=== PATIENT | female | born 1985 | race Two or more races ===

== ENCOUNTER 2018-12-17 17:36 | Emergency (ER) | payer SELFPAY ==
[~2018-12-17] VITALS: Ht 165.1 cm; Wt 78.5 kg
[2018-12-17 18:52] LABS: BILIRUBIN,URINE NEGATIVE (NEG); CLARITY,URINE CLEAR; COLOR,URINE YELLOW; NITRITE,URINE NEGATIVE (NEG); PROTEIN,URINE NEGATIVE (NEG-TRACE); UROBILINOGEN,URINE 0.2 mg/dL (0.2 mg/dL)
[2018-12-17] MEDS ORDERED: ACETAMINOPHEN 325 MG TABLET. PO ONE (19:00)
[2018-12-17 19:01] LABS: BACTERIA,URINE 0 /HPF (0-FEW); SQUAMOUS EPITHELIAL CELL,UR FEW /LPF
[2018-12-17 19:48] LABS: BASO # 0.1 x10^3/uL (0.0-0.2); BASO % 1 % (0-3); EOS # 0.1 x10^3/uL (0.0-0.7); EOS % 1 % (0-3); HEMATOCRIT 41.3 % (36.0-47.0); HEMOGLOBIN 13.9 g/dL (12.0-15.5); LYMPH # 2.9 x10^3/uL (1.0-4.8); LYMPH % 28 % (24-48); MEAN CORPUSCULAR HEMOGLOBIN 29 pg (25-35); MEAN CORPUSCULAR HGB CONC 34 g/dL (31-37); MEAN CORPUSCULAR VOLUME 87 fL (79-100); MONO # 0.7 x10^3/uL (0.0-1.1); MONO % 7 % (0-9); NEUT # 6.9 x10^3uL (1.8-7.7); NEUT % 65 % (31-73); PLATELET COUNT 283 x10^3/uL (140-400); RED BLOOD COUNT 4.76 x10^6/uL (3.50-5.40); RED CELL DISTRIBUTION WIDTH 14.1 % (11.5-14.5); WHITE BLOOD COUNT 10.6 x10^3/uL (4.0-11.0)
[2018-12-17 19:55] LABS: CALCIUM 9.3 mg/dL (8.5-10.1); CREATININE 0.5 mg/dL (0.6-1.0); GFR 141.2; POTASSIUM 3.6 mmol/L (3.5-5.1)
[2018-12-17 20:03] LABS: MAGNESIUM 2.1 mg/dL (1.8-2.4); TOTAL BILIRUBIN 0.3 mg/dL (0.2-1.0)
[2018-12-17 20:07] LABS: PROTHROMBIN TIME PATIENT 13.5 SEC (11.7-14.0)
--- NOTE | 2018-12-17 20:50 | RAD ---
CT chest without contrast, CT abdomen pelvis without contrast. HISTORY: Fall, left flank pain, hematuria, left chest pain CT CHEST: CT scan the chest was done without contrast. Thyroid is homogeneous. There is no mediastinal adenopathy. There is no pneumothorax or pleural effusion. Lungs are clear. A rib fracture is not identified. IMPRESSION: 1. Negative CT of the chest. End impression CT abdomen and pelvis CT scan the abdomen pelvis was done without contrast. Liver is intact without abnormality or lesion. There is no calcified gallstone. Spleen and adrenal glands are normal. Pancreas is unremarkable. There is no mass or hydronephrosis or calculus in the kidneys. There is no abnormal perinephric collection. There are phleboliths in the pelvis. A ureteral calculus is not definitely identified. There is no bowel obstruction or ascites. There is no free air. Appendix is normal. Uterus and ovaries are unremarkable. A pelvic fracture is not identified. IMPRESSION: 1. No abdominal or pelvic mass or free fluid noted. 2. No renal or ureteral calculus noted Electronically signed by: Estuardo Alvarez MD (12/17/2018 8:46 PM) [facility]
--- NOTE | 2018-12-17 21:04 | PHYS DOC ---
Past Medical History Past Medical History: No Pertinent History Past Surgical History: No Surgical History Additional Information: Nonsmoker Alcohol Use: None Drug Use: None Adult General Chief Complaint Chief Complaint: FLANK PAIN HPI HPI 33 y/o female presents with report of left flank pain with associated hematuria which started this evening. Reports some left lateral chest wall pain. Reports history of mechanical trip and fall today down 3 steps while at [employer] today at 1115am. Denies head trauma or neck pain. Denies laceration. Denies . Review of Systems Review of Systems Constitutional: Denies fever or chills [] Eyes: Denies change in visual acuity, redness, or eye pain [] HENT: Denies nasal congestion or sore throat [] Respiratory: Denies cough or shortness of breath [] Cardiovascular: Reports left low chest wall pain; denies palpitations GI: Denies abdominal pain, nausea, vomiting, or diarrhea [] : Denies dysuria; reports hematuria [] Musculoskeletal: Reports left flank pain Integument: Denies rash or skin lesions [] Neurologic: Denies headache, focal weakness or sensory changes [] Complete systems were reviewed and found to be within normal limits, except as documented in this note. Current Medications Current Medications Current Medications Medications (Trade) Dose Ordered Sig/Dionna Start Time Stop Time Status Last Admin Dose Admin Acetaminophen (Tylenol) 650 mg 1X ONCE 12/17/18 19:00 12/17/18 19:06 DC 12/17/18 19:35 650 MG Allergies Allergies Allergies Coded Allergies Type Severity Reaction Last Updated Verified No Known Drug Allergies 12/17/18 No Physical Exam Physical Exam Constitutional: Well developed, well nourished, no acute distress, non-toxic appearance. [] HENT: Normocephalic, atraumatic, bilateral TMs normal, oropharynx moist, nose normal. [] Eyes: PERRL, EOMI, conjunctiva normal, no discharge. [] Neck: Normal range of motion, no tenderness, supple Cardiovascular: Heart rate regular rhythm, no murmur [] Lungs & Thorax: Bilateral breath sounds clear to auscultation [] Abdomen: Soft, no tenderness Skin: Warm, dry, no erythema, no laceration or contusion noted Back: No tenderness, left CVA tenderness. [] Extremities: No tenderness, no deformity, ROM intact, no edema. [] Neurologic: Alert and oriented X 3, no focal deficits noted. [] Psychologic: Affect normal, judgement normal, mood normal. [] Current Patient Data Vital Signs Lab Values Laboratory Tests Test 12/17/18 18:35 12/17/18 18:45 12/17/18 19:38 Urine Collection Type Unknown Urine Color Yellow Urine Clarity Clear Urine pH 6.[address] 1.015 Urine Protein Negative mg/dL (NEG-TRACE) Urine Glucose (UA) Negative mg/dL (NEG) Urine Ketones (Stick) Negative mg/dL (NEG) Urine Blood Moderate (NEG) Urine Nitrite Negative (NEG) Urine Bilirubin Negative (NEG) Urine Urobilinogen Dipstick 0.2 mg/dL (0.2 mg/dL) Urine Leukocyte Esterase Negative (NEG) Urine RBC 3-5 /HPF (0-2) Urine WBC 1-4 /HPF (0-4) Urine Squamous Epithelial Cells Few /LPF Urine Bacteria 0 /HPF (0-FEW) POC Urine HCG, Qualitative Hcg negative (Negative) White Blood Count 10.6 x10^3/uL (4.0-11.0) Red Blood Count 4.76 x10^6/uL (3.50-5.40) Hemoglobin 13.9 g/dL (12.0-15.5) Hematocrit 41.3 % (36.0-47.0) Mean Corpuscular Volume 87 fL (79-100) Mean Corpuscular Hemoglobin 29 pg (25-35) Mean Corpuscular Hemoglobin Concent 34 g/dL (31-37) Red Cell Distribution Width 14.1 % (11.5-14.5) Platelet Count 283 x10^3/uL (140-400) Neutrophils (%) (Auto) 65 % (31-73) Lymphocytes (%) (Auto) 28 % (24-48) Monocytes (%) (Auto) 7 % (0-9) Eosinophils (%) (Auto) 1 % (0-3) Basophils (%) (Auto) 1 % (0-3) Neutrophils # (Auto) 6.9 x10^3uL (1.8-7.7) Lymphocytes # (Auto) 2.9 x10^3/uL (1.0-4.8) Monocytes # (Auto) 0.7 x10^3/uL (0.0-1.1) Eosinophils # (Auto) 0.1 x10^3/uL (0.0-0.7) Basophils # (Auto) 0.1 x10^3/uL (0.0-0.2) Prothrombin Time 13.5 SEC (11.7-14.0) Prothrombin Time INR 1.1 (0.8-1.1) PTT 32 SEC (24-38) Sodium Level 138 mmol/L (136-145) Potassium Level 3.6 mmol/L (3.5-5.1) Chloride Level 104 mmol/L (98-107) Carbon Dioxide Level 28 mmol/L (21-32) Anion Gap 6 (6-14) Blood Urea Nitrogen 11 mg/dL (7-20) Creatinine 0.5 mg/dL (0.6-1.0) L Estimated GFR (Cockcroft-Gault) 141.2 BUN/Creatinine Ratio 22 (6-20) H Glucose Level 105 mg/dL (70-99) H Calcium Level 9.3 mg/dL (8.5-10.1) Magnesium Level 2.1 mg/dL (1.8-2.4) Total Bilirubin 0.3 mg/dL (0.2-1.0) Aspartate Amino Transferase (AST) 27 U/L (15-37) Alanine Aminotransferase (ALT) 36 U/L (14-59) Alkaline Phosphatase 79 U/L (46-116) Total Protein 8.0 g/dL (6.4-8.2) Albumin 4.0 g/dL (3.4-5.0) Albumin/Globulin Ratio 1.0 (1.0-1.7) Lipase 102 U/L (73-393) Laboratory Tests 12/17/18 19:38 Laboratory Tests 12/17/18 19:38 EKG EKG [] Radiology/Procedures Radiology/Procedures PROCEDURE: CT CHEST ABDOMEN PELVIS WO CT chest without contrast, CT abdomen pelvis without contrast. HISTORY: Fall, left flank pain, hematuria, left chest pain CT CHEST: CT scan the chest was done without contrast. Thyroid is homogeneous. There is no mediastinal adenopathy. There is no pneumothorax or pleural effusion. Lungs are clear. A rib fracture is not identified. IMPRESSION: 1. Negative CT of the chest. End impression CT abdomen and pelvis CT scan the abdomen pelvis was done without contrast. Liver is intact without abnormality or lesion. There is no calcified gallstone. Spleen and adrenal glands are normal. Pancreas is unremarkable. There is no mass or hydronephrosis or calculus in the kidneys. There is no abnormal perinephric collection. There are phleboliths in the pelvis. A ureteral calculus is not definitely identified. There is no bowel obstruction or ascites. There is no free air. Appendix is normal. Uterus and ovaries are unremarkable. A pelvic fracture is not identified. IMPRESSION: 1. No abdominal or pelvic mass or free fluid noted. 2. No renal or ureteral calculus noted Electronically signed by: Estuardo Alvarez MD (12/17/2018 8:46 PM) [facility] Course & Med Decision Making Course & Med Decision Making Pertinent Labs and Imaging studies reviewed. (See chart for details) Patient presents s/p mechanical teip and fall this AM at [employer] down approximately 3 stairs. Patient neurologically intact. NO midline cervical spine tenderness. NO sign of head trama. Pain addressed. ICE applied. Labs obtained and posted to chart. CT chest/abdomen/pelvis without acute process. Patient stable for discharge home with outpatient follow-up with PCP. Discussed findings and plan with patient, who acknowledges understanding and agreement. Dragon Disclaimer Dragon Disclaimer This electronic medical record was generated, in whole or in part, using a voice recognition dictation system. Departure Departure Impression: Primary Impression: Fall Additional Impressions: Chest wall contusion Contusion, flank Disposition: 01 HOME, SELF-CARE Condition: STABLE Referrals: UNKNOWN PCP NAME (PCP) Patient Instructions: Chest Contusion, [id number], Contusion, [id number], Fall Prevention and Home Safety, [id number], Incentive Spirometer Scripts Tramadol Hcl (TRAMADOL HCL) 50 Mg Tablet 50 MG PO Q6HRS PRN for PAIN, #14 TAB Prov: MYA MAYA DO 12/17/18 Orphenadrine Citrate (ORPHENADRINE CITRATE) 100 Mg Tablet.er 100 MG PO BID PRN for MUSCLE PAIN, #14 Prov: MYA MAYA DO 12/17/18 Problem Qualifiers Primary Impression: Fall Encounter type: initial encounter Qualified Codes: W19.XXXA - Unspecified fall, initial encounter Additional Impressions: Chest wall contusion Encounter type: initial encounter Laterality: left Qualified Codes: S20.212A - Contusion of left front wall of thorax, initial encounter Contusion, flank Encounter type: initial encounter Qualified Codes: S30.1XXA - Contusion of abdominal wall, initial encounter MYA MAYA DO Dec 17, 2018 21:04
[2018-12-17] MEDS ORDERED: ORPH100T PO (21:46)
[2018-12-17] MEDS ORDERED: TRAM50TA PO (21:46)
[2018-12-17 22:00] VITALS: BP 119/70
== END 2018-12-17 22:03 | disposition home or self-care (01) ==
LOC: ER 17:36
DX: S30.1XXA Contusion of abdominal wall, initial encounter (principal); S20.212A Contusion of left front wall of thorax, initial encounter; W10.8XXA Fall (on) (from) other stairs and steps, initial encounter; Y93.89 Activity, other specified; Y92.89 Other specified places as the place of occurrence of the external cause; Y99.8 Other external cause status
CPT/HCPCS: 36415; 71250; 74176; 80053; 81001; 81025; 83690; 83735; 85025; 85610; 85730; 99284

== ENCOUNTER 2020-07-12 18:18 | Inpatient (IN) | payer SELFPAY ==
[~2020-07-12] VITALS: Ht 162.6 cm; Wt 79.9 kg
[~2020-07-12 18:18] MED LIST: ORPH100T PO; TRAM50TA PO
[2020-07-12] MEDS ORDERED: IV NORMAL SALINE 1000ML BAG 1,000 ML IV ONE (20:00)
[2020-07-12 20:02] LABS: BILIRUBIN,URINE NEGATIVE (NEG); CLARITY,URINE CLEAR; COLOR,URINE YELLOW; NITRITE,URINE NEGATIVE (NEG); PROTEIN,URINE NEGATIVE (NEG-TRACE); UROBILINOGEN,URINE 0.2 mg/dL (0.2 mg/dL)
[2020-07-12 20:06] LABS: SQUAMOUS EPITHELIAL CELL,UR FEW /LPF
[2020-07-12 20:07] LABS: BACTERIA,URINE FEW /HPF (0-FEW)
[2020-07-12 20:08] LABS: RBC,URINE OCC /HPF (0-2)
[2020-07-12 20:09] LABS: WBC,URINE RARE /HPF (0-4)
[2020-07-12 20:13] LABS: BASO # 0.1 x10^3/uL (0.0-0.2); BASO % 1 % (0-3); EOS # 0.1 x10^3/uL (0.0-0.7); EOS % 1 % (0-3); HEMATOCRIT 35.2 % (36.0-47.0); HEMOGLOBIN 12.2 g/dL (12.0-15.5); LYMPH # 3.4 x10^3/uL (1.0-4.8); LYMPH % 28 % (24-48); MEAN CORPUSCULAR HEMOGLOBIN 29 pg (25-35); MEAN CORPUSCULAR HGB CONC 35 g/dL (31-37); MEAN CORPUSCULAR VOLUME 83 fL (79-100); MONO % 8 % (0-9); NEUT # 7.7 x10^3/uL (1.8-7.7); NEUT % 62 % (31-73); RED BLOOD COUNT 4.27 x10^6/uL (3.50-5.40); WHITE BLOOD COUNT 12.3 x10^3/uL (4.0-11.0)
[2020-07-12 20:22] LABS: CREATININE 0.9 mg/dL (0.6-1.0); GFR 70.8; POTASSIUM 3.7 mmol/L (3.5-5.1)
[2020-07-12 20:30] LABS: PLATELET COUNT 305 x10^3/uL (140-400)
[2020-07-12] MEDS ORDERED: ONDANSETRON PF 4 MG/2 ML VIAL. IV ONE (20:30)
[2020-07-12 20:31] LABS: ALBUMIN 4.2 g/dL (3.4-5.0); ALBUMIN/GLOBULIN RATIO 1.2 (1.0-1.7); MAGNESIUM 2.3 mg/dL (1.8-2.4); TOTAL BILIRUBIN 0.2 mg/dL (0.2-1.0); TOTAL PROTEIN 7.8 g/dL (6.4-8.2)
[2020-07-12] MEDS ORDERED: ONDANSETRON PF 4 MG/2 ML VIAL. IV PRN (21:15)
--- NOTE | 2020-07-12 21:22 | RAD ---
Exam: Ultrasound abdomen limited Indication: Right upper quadrant abdominal pain and epigastric pain Technique: Real-time grayscale and color Doppler images of the right upper quadrant were obtained by the department copyman. Comparisons: None FINDINGS: Liver contour is normal. Hepatopedal flow noted within the portal vein. Gallbladder is distended with mild gallbladder wall thickening. Gallstones are noted. Sonographic Benitez sign is positive per the department copyman. Common bile duct measures 6 mm in diameter. Right kidney measures 10.4 cm in length. No hydronephrosis. Visual is portions aorta and IVC are unremarkable. IMPRESSION: 1. Findings suspicious for acute cholecystitis. HIDA scan can more definitively evaluate. 2. No right-sided hydronephrosis. 3. Normal sonographic appearance of the liver. Electronically signed by: Antonina Mcgraw MD (07/12/2020 9:19 PM) [id number]
--- NOTE | 2020-07-12 21:41 | PHYS DOC ---
Past Medical History Past Medical History: No Pertinent History (CANDELARIA CASTAÑEDA APRN) Past Surgical History: No Surgical History (CANDELARIA CASTAÑEDA APRN) Smoking Status: Never Smoker Alcohol Use: None Drug Use: None (CANDELARIA CASTAÑEDA APRN) General Adult EDM: Chief Complaint: ABDOMINAL PAIN HPI: HPI: Patient is a 35 year old female, accompanied by her friend, who presents to the emergency department with complaints of right upper quadrant and epigastric abdominal pain with nausea and vomiting for the last 2 days. Patient reports she has vomited once in the last 24 hours, she has noticed that the pain is worse shortly after she eats. She denies having any blood in her vomit. She denies any fever, cough, shortness of breath, chest pain, dysuria, hematuria, increased urinary frequency, diarrhea, or rash. She currently rates the pain a 10 out of 10 on the pain scale, she denies any alleviating factors or radiation of the pain. (CANDELARIA CASTAÑEDA APRN) Review of Systems: Review of Systems: Constitutional: Denies fever or chills. [] HENT: Denies nasal congestion or sore throat. [] Respiratory: Denies cough or shortness of breath. [] Cardiovascular: Denies chest pain or edema. [] GI: See HPI : Denies dysuria. [] Musculoskeletal: Denies back pain or joint pain. [] Integument: Denies rash. [] Neurologic: Denies headache Psychiatric: Denies depression or anxiety. [] (CANDELARIA CASTAÑEDA APRN) Heart Score: Risk Factors: Risk Factors: DM, Current or recent (<one month) smoker, HTN, HLP, family history of CAD, obesity. Risk Scores: Score 0 - 3: 2.5% MACE over next 6 weeks - Discharge Home Score 4 - 6: 20.3% MACE over next 6 weeks - Admit for Clinical Observation Score 7 - 10: 72.7% MACE over next 6 weeks - Early Invasive Strategies (CANDELARIA CASTAÑEDA APRN) Current Medications: Current Medications Medications (Trade) Dose Ordered Sig/Dionna Start Time Stop Time Status Last Admin Dose Admin Fentanyl Citrate (Fentanyl 2ml Vial) 50 mcg PRN Q1HR PRN 07/12/20 21:15 Ondansetron HCl (Zofran) 4 mg PRN Q4HRS PRN 07/12/20 21:30 Piperacillin Sod/ Tazobactam Sod 3.375 gm/Sodium Chloride 50 ml @ 100 mls/hr Q6HRS 07/12/20 22:00 Sodium Chloride 1,000 ml @ 1,000 mls/hr 1X ONCE 07/12/20 20:00 07/12/20 20:59 DC 07/12/20 20:28 1,000 MLS/HR (CANDELARIA CASTAÑEDA APRN) Allergies: Allergies: Allergies Coded Allergies Type Severity Reaction Last Updated Verified No Known Drug Allergies 12/17/18 No (CANDELARIA CASTAÑEDA APRN) Physical Exam: PE: Constitutional: Well developed, well nourished, no acute distress, non-toxic appearance. [] HENT: Normocephalic, atraumatic, bilateral external ears normal, oropharynx moist, nose normal. [] Eyes: PERRLA, EOMI, conjunctiva normal, no discharge. [] Neck: Normal range of motion, no stridor. [] Cardiovascular:Heart rate regular rhythm Lungs & Thorax: Bilateral breath sounds clear to auscultation, Respirations even and unlabored, no retractions, no respiratory distress Abdomen: Bowel sounds normal, soft, RUQ and epigastric TTP, no rebound tenderness, no masses, no pulsatile masses. [] Skin: Warm, dry, no erythema, no rash. [] Back: No tenderness Extremities: No cyanosis, ROM intact, no edema. [] Neurologic: Alert and oriented X 3, normal motor function, normal sensory function, no focal deficits noted. [] Psychologic: Affect normal, judgement normal, mood normal. [] (CANDELARIA CASTAÑEDA APRN) Current Patient Data: Labs: Laboratory Tests Test 07/12/20 19:53 07/12/20 19:57 07/12/20 20:02 Urine Collection Type Unknown Urine Color Yellow Urine Clarity Clear Urine pH 7.0 (<5.0-8.0) Urine Specific [place] 1.020 (1.000-1.030) Urine Protein Negative mg/dL (NEG-TRACE) Urine Glucose (UA) Negative mg/dL (NEG) Urine Ketones (Stick) Negative mg/dL (NEG) Urine Blood Trace (NEG) Urine Nitrite Negative (NEG) Urine Bilirubin Negative (NEG) Urine Urobilinogen Dipstick 0.2 mg/dL (0.2 mg/dL) Urine Leukocyte Esterase Trace (NEG) Urine RBC Occ /HPF (0-2) Urine WBC Rare /HPF (0-4) Urine Squamous Epithelial Cells Few /LPF Urine Bacteria Few /HPF (0-FEW) POC Urine HCG, Qualitative Hcg negative (Negative) White Blood Count 12.3 x10^3/uL (4.0-11.0) H Red Blood Count 4.27 x10^6/uL (3.50-5.40) Hemoglobin 12.2 g/dL (12.0-15.5) Hematocrit 35.2 % (36.0-47.0) L Mean Corpuscular Volume 83 fL (79-100) Mean Corpuscular Hemoglobin 29 pg (25-35) Mean Corpuscular Hemoglobin Concent 35 g/dL (31-37) Red Cell Distribution Width 15.0 % (11.5-14.5) H Platelet Count 305 x10^3/uL (140-400) Neutrophils (%) (Auto) 62 % (31-73) Lymphocytes (%) (Auto) 28 % (24-48) Monocytes (%) (Auto) 8 % (0-9) Eosinophils (%) (Auto) 1 % (0-3) Basophils (%) (Auto) 1 % (0-3) Neutrophils # (Auto) 7.7 x10^3/uL (1.8-7.7) Lymphocytes # (Auto) 3.4 x10^3/uL (1.0-4.8) Monocytes # (Auto) 1.0 x10^3/uL (0.0-1.1) Eosinophils # (Auto) 0.1 x10^3/uL (0.0-0.7) Basophils # (Auto) 0.1 x10^3/uL (0.0-0.2) Sodium Level 137 mmol/L (136-145) Potassium Level 3.7 mmol/L (3.5-5.1) Chloride Level 103 mmol/L (98-107) Carbon Dioxide Level 25 mmol/L (21-32) Anion Gap 9 (6-14) Blood Urea Nitrogen 12 mg/dL (7-20) Creatinine 0.9 mg/dL (0.6-1.0) Estimated GFR (Cockcroft-Gault) 70.8 BUN/Creatinine Ratio 13 (6-20) Glucose Level 122 mg/dL (70-99) H Calcium Level 9.0 mg/dL (8.5-10.1) Magnesium Level 2.3 mg/dL (1.8-2.4) Total Bilirubin 0.2 mg/dL (0.2-1.0) Aspartate Amino Transferase (AST) 27 U/L (15-37) Alanine Aminotransferase (ALT) 30 U/L (14-59) Alkaline Phosphatase 85 U/L (46-116) Total Protein 7.8 g/dL (6.4-8.2) Albumin 4.2 g/dL (3.4-5.0) Albumin/Globulin Ratio 1.2 (1.0-1.7) Lipase 97 U/L (73-393) Laboratory Tests 07/12/20 20:02 Laboratory Tests 07/12/20 20:02 Vital Signs: Vital Signs Date Time Temp Pulse Resp B/P (MAP) Pulse Ox O2 Delivery O2 Flow Rate FiO2 07/12/20 19:47 98.7 62 12 125/60 (81) 98 98.7 07/12/20 18:51 Room Air (CANDELARIA CASTAÑEDA APRN) EKG: EKG: [] (CANDELARIA CASTAÑEDA APRN) Radiology/Procedures: Radiology/Procedures: PROCEDURE: ABDOMEN LTD Exam: Ultrasound abdomen limited Indication: Right upper quadrant abdominal pain and epigastric pain Technique: Real-time grayscale and color Doppler images of the right upper quadrant were obtained by the department denture laboratory technician. Comparisons: None FINDINGS: Liver contour is normal. Hepatopedal flow noted within the portal vein. Gallbladder is distended with mild gallbladder wall thickening. Gallstones are noted. Sonographic Benitez sign is positive per the department denture laboratory technician. Common bile duct measures 6 mm in diameter. Right kidney measures 10.4 cm in length. No hydronephrosis. Visual is portions aorta and IVC are unremarkable. IMPRESSION: 1. Findings suspicious for acute cholecystitis. HIDA scan can more definitively evaluate. 2. No right-sided hydronephrosis. 3. Normal sonographic appearance of the liver. [] (CANDELARIA CASTAÑEDA APRN) Course & Med Decision Making: Course & Med Decision Making Pertinent Labs and Imaging studies reviewed. (See chart for details) [id number]-spoke with Dr. Wright who is the admitting physician, and care was assumed following discussion of patient. Will admit patient for acute cholecystitis, advised will order surgical COVID swab and blood cultures x2 Patient's vital signs stable. Patient remains afebrile, appears nontoxic, respirations even and unlabored. Patient will be admitted to the medical surgi sushila floor. Patient's case and plan of care also discussed with Dr. Maya 2151-advised Dr. Lopez of patient being admitted with acute cholecystitis [] (CANDELARIA CASTAÑEDA APRN) Dragon Disclaimer: Dragon Disclaimer: This electronic medical record was generated, in whole or in part, using a voice recognition dictation system. (CANDELARIA CASTAÑEDA APRN) Departure Departure Impression: Primary Impression: Acute cholecystitis Disposition: ADMITTED INPATIENT Admitting Physician: BRADLEY Kenney) (CANDELARIA CASTAÑEDA APRN) Condition: STABLE Referrals: UNKNOWN PCP NAME (PCP) Justicifation of Admission Dx: Justifications for Admission: Justification of Admission Dx: Yes Comments: acute cholecystitis (CANDELARIA CASTAÑEDA APRN) Attending Signature Attending Signature I have reviewed the PA/CUSTOMER CARE AGENT's note and plan of care. I was available for consultation as needed during the patient's visit in the emergency department. I agree with the clinical impression, plan, and disposition. (MYA MAYA DO) CANDELARIA CASTAÑEDA APRN Jul 12, 2020 21:41 MYA MAYA DO Jul 13, 2020 01:04
[2020-07-12] MEDS: fentaNYL PF VIAL 100 MCG/2 ML VIAL IV PRN (21:50)
[2020-07-12] MEDS: PIPERACILLIN/TAZOBACTAM 3.375 GM in IV NORMAL SALINE 50ML 50 ML IV SCH (22:21)
[2020-07-12] MEDS ORDERED: fentaNYL PF VIAL 100 MCG/2 ML VIAL IV ONE (23:30)
[2020-07-13] VITALS (11 sets, daily range): BP systolic 102–136; BP diastolic 45–73
[2020-07-13] MEDS: fentaNYL PF VIAL 100 MCG/2 ML VIAL IV PRN ×6 (02:26→20:34)
[2020-07-13] MEDS: PIPERACILLIN/TAZOBACTAM 3.375 GM in IV NORMAL SALINE 50ML 50 ML IV SCH ×4 (05:38→23:57)
[2020-07-13] MEDS: ONDANSETRON PF 4 MG/2 ML VIAL. IV PRN ×2 (07:13→17:07)
--- NOTE | 2020-07-13 08:14 | PDOC1 ---
History and Physical Date of Admission Date of Admission DATE: 07/13/20 TIME: 08:03 Identification/Chief Complaint Chief Complaint Abdominal pain Source Source: Patient History of Present Illness History of Present Illness Patient is a 35-year-old female with no significant past medical history who presents to the ER with complaint of worsening abdominal pain for the past 3 days. Her pain is aching in nature. States her pain is worse with eating. She denies any alleviating factors. She denies any associated nausea, vomiting, fever. Past Medical History Past Medical History No pertinent past medical history Past Surgical History Past Surgical History: No pertinent history Family History Family History No pertinent family history Social History Smoke: No ALCOHOL: none Drugs: None Current Problem List Problem List Problems Medical Problems: (1) Acute cholecystitis Status: Acute (2) Cancer Status: Acute Current Medications Current Medications Current Medications Sodium Chloride 1,000 ml @ 1,000 mls/hr 1X ONCE IV Last administered on 07/12/20at 20:28; Start 07/12/20 at 20:00; Stop 07/12/20 at 20:59; Status DC Ondansetron HCl (Zofran) 4 mg 1X ONCE IV Last administered on 07/12/20at 20:28; Start 07/12/20 at 20:30; Stop 07/12/20 at 20:31; Status DC Ondansetron HCl (Zofran) 4 mg PRN Q8HRS PRN IV NAUSEA/VOMITING 1ST CHOICE; Start 07/12/20 at 21:15; Stop 07/12/20 at 21:23; Status DC Fentanyl Citrate (Fentanyl 2ml Vial) 50 mcg PRN Q1HR PRN IV SEVERE PAIN 7-10 Last administered on 07/13/20at 07:13; Start 07/12/20 at 21:15 Ondansetron HCl (Zofran) 4 mg PRN Q4HRS PRN IV NAUSEA/VOMITING 1ST CHOICE Last administered on 07/13/20at 07:13; Start 07/12/20 at 21:30 Piperacillin Sod/ Tazobactam Sod 3.375 gm/Sodium Chloride 50 ml @ 100 mls/hr Q6HRS IV Last administered on 07/13/20at 05:38; Start 07/12/20 at 22:00 Fentanyl Citrate (Fentanyl 2ml Vial) 50 mcg 1X ONCE IV Last administered on 07/13/20at 00:26; Start 07/12/20 at 23:30; Stop 07/12/20 at 23:31; Status DC Heparin Sodium (Porcine) 1000 unit/Sodium Chloride 1,001 ml @ 1,001 mls/hr 1X ONCE IRR ; Start 07/13/20 at 08:00; Stop 07/13/20 at 08:59 Active Scripts Active Tramadol Hcl 50 Mg Tablet 50 Mg PO Q6HRS PRN Orphenadrine Citrate 100 Mg Tablet.er 100 Mg PO BID PRN Allergies Allergies: Coded Allergies: No Known Drug Allergies (Unverified , 12/17/18) ROS General: No: Chills, Fatigue PSYCHOLOGICAL ROS: No: Anxiety, Depression Eyes: No Blurry vision, No Decreased vision HEENT: No: Nasal discharge, Sinus pain, Sore Throat ALLERGY AND IMMUNOLOGY: No: Hives, Nasal Congestion Hematological and Lymphatic: No: Bleeding Problems, Blood Clots Respiratory: No: Cough, Shortness of breath Cardiovascular: No Chest Pain, No Edema Gastrointestinal: Yes Abdominal Pain; No Nausea, No Vomiting, No Diarrhea Genitourinary: No Dysuria, No Frequency Musculoskeletal: No Joint Pain, No Joint Swelling Neurological: No Confusion, No Dizziness Skin: No Dry Skin, No Rash Physical Exam General: Alert, Oriented X3, Cooperative, No acute distress HEENT: PERRLA Lungs: Clear to auscultation, Normal air movement Heart: RRR Cardiovascular: S1, S2 Abdomen: Soft, Other (Right upper quadrant tenderness) Extremities: No clubbing, No cyanosis, No edema Skin: No rashes, No breakdown Neuro: Normal tone, Sensation intact Psych/Mental Status: Mental status NL, Mood NL Vitals Vitals Vital Signs Date Time Temp Pulse Resp B/P (MAP) Pulse Ox O2 Delivery O2 Flow Rate FiO2 07/13/20 07:13 Room Air 07/13/20 07:00 98.2 58 20 115/73 (87) 95 98.2 Labs Labs Laboratory Tests Test 07/12/20 19:53 07/12/20 19:57 07/12/20 20:02 07/13/20 01:50 Urine Collection Type Unknown Urine Color Yellow Urine Clarity Clear Urine pH 7.0 (<5.0-8.0) Urine Specific [place] 1.020 (1.000-1.030) Urine Protein Negative mg/dL (NEG-TRACE) Urine Glucose (UA) Negative mg/dL (NEG) Urine Ketones (Stick) Negative mg/dL (NEG) Urine Blood Trace (NEG) Urine Nitrite Negative (NEG) Urine Bilirubin Negative (NEG) Urine Urobilinogen Dipstick 0.2 mg/dL (0.2 mg/dL) Urine Leukocyte Esterase Trace (NEG) Urine RBC Occ /HPF (0-2) Urine WBC Rare /HPF (0-4) Urine Squamous Epithelial Cells Few /LPF Urine Bacteria Few /HPF (0-FEW) Bedside Urine HCG, Qualitative Hcg negative (Negative) White Blood Count 12.3 x10^3/uL (4.0-11.0) Red Blood Count 4.27 x10^6/uL (3.50-5.40) Hemoglobin 12.2 g/dL (12.0-15.5) Hematocrit 35.2 % (36.0-47.0) Mean Corpuscular Volume 83 fL (79-100) Mean Corpuscular Hemoglobin 29 pg (25-35) Mean Corpuscular Hemoglobin Concent 35 g/dL (31-37) Red Cell Distribution Width 15.0 % (11.5-14.5) Platelet Count 305 x10^3/uL (140-400) Neutrophils (%) (Auto) 62 % (31-73) Lymphocytes (%) (Auto) 28 % (24-48) Monocytes (%) (Auto) 8 % (0-9) Eosinophils (%) (Auto) 1 % (0-3) Basophils (%) (Auto) 1 % (0-3) Neutrophils # (Auto) 7.7 x10^3/uL (1.8-7.7) Lymphocytes # (Auto) 3.4 x10^3/uL (1.0-4.8) Monocytes # (Auto) 1.0 x10^3/uL (0.0-1.1) Eosinophils # (Auto) 0.1 x10^3/uL (0.0-0.7) Basophils # (Auto) 0.1 x10^3/uL (0.0-0.2) Sodium Level 137 mmol/L (136-145) Potassium Level 3.7 mmol/L (3.5-5.1) Chloride Level 103 mmol/L (98-107) Carbon Dioxide Level 25 mmol/L (21-32) Anion Gap 9 (6-14) Blood Urea Nitrogen 12 mg/dL (7-20) Creatinine 0.9 mg/dL (0.6-1.0) Estimated GFR (Cockcroft-Gault) 70.8 BUN/Creatinine Ratio 13 (6-20) Glucose Level 122 mg/dL (70-99) Calcium Level 9.0 mg/dL (8.5-10.1) Magnesium Level 2.3 mg/dL (1.8-2.4) Total Bilirubin 0.2 mg/dL (0.2-1.0) Aspartate Amino Transf (AST/SGOT) 27 U/L (15-37) Alanine Aminotransferase (ALT/SGPT) 30 U/L (14-59) Alkaline Phosphatase 85 U/L (46-116) Total Protein 7.8 g/dL (6.4-8.2) Albumin 4.2 g/dL (3.4-5.0) Albumin/Globulin Ratio 1.2 (1.0-1.7) Lipase 97 U/L (73-393) SARS-CoV-2 Antigen (Rapid) Negative (NEGATIVE) Laboratory Tests Test 07/12/20 19:53 07/12/20 19:57 07/12/20 20:02 07/13/20 01:50 Urine Collection Type Unknown Urine Color Yellow Urine Clarity Clear Urine pH 7.0 (<5.0-8.0) Urine Specific [place] 1.020 (1.000-1.030) Urine Protein Negative mg/dL (NEG-TRACE) Urine Glucose (UA) Negative mg/dL (NEG) Urine Ketones (Stick) Negative mg/dL (NEG) Urine Blood Trace (NEG) Urine Nitrite Negative (NEG) Urine Bilirubin Negative (NEG) Urine Urobilinogen Dipstick 0.2 mg/dL (0.2 mg/dL) Urine Leukocyte Esterase Trace (NEG) Urine RBC Occ /HPF (0-2) Urine WBC Rare /HPF (0-4) Urine Squamous Epithelial Cells Few /LPF Urine Bacteria Few /HPF (0-FEW) Bedside Urine HCG, Qualitative Hcg negative (Negative) White Blood Count 12.3 x10^3/uL (4.0-11.0) Red Blood Count 4.27 x10^6/uL (3.50-5.40) Hemoglobin 12.2 g/dL (12.0-15.5) Hematocrit 35.2 % (36.0-47.0) Mean Corpuscular Volume 83 fL (79-100) Mean Corpuscular Hemoglobin 29 pg (25-35) Mean Corpuscular Hemoglobin Concent 35 g/dL (31-37) Red Cell Distribution Width 15.0 % (11.5-14.5) Platelet Count 305 x10^3/uL (140-400) Neutrophils (%) (Auto) 62 % (31-73) Lymphocytes (%) (Auto) 28 % (24-48) Monocytes (%) (Auto) 8 % (0-9) Eosinophils (%) (Auto) 1 % (0-3) Basophils (%) (Auto) 1 % (0-3) Neutrophils # (Auto) 7.7 x10^3/uL (1.8-7.7) Lymphocytes # (Auto) 3.4 x10^3/uL (1.0-4.8) Monocytes # (Auto) 1.0 x10^3/uL (0.0-1.1) Eosinophils # (Auto) 0.1 x10^3/uL (0.0-0.7) Basophils # (Auto) 0.1 x10^3/uL (0.0-0.2) Sodium Level 137 mmol/L (136-145) Potassium Level 3.7 mmol/L (3.5-5.1) Chloride Level 103 mmol/L (98-107) Carbon Dioxide Level 25 mmol/L (21-32) Anion Gap 9 (6-14) Blood Urea Nitrogen 12 mg/dL (7-20) Creatinine 0.9 mg/dL (0.6-1.0) Estimated GFR (Cockcroft-Gault) 70.8 BUN/Creatinine Ratio 13 (6-20) Glucose Level 122 mg/dL (70-99) Calcium Level 9.0 mg/dL (8.5-10.1) Magnesium Level 2.3 mg/dL (1.8-2.4) Total Bilirubin 0.2 mg/dL (0.2-1.0) Aspartate Amino Transf (AST/SGOT) 27 U/L (15-37) Alanine Aminotransferase (ALT/SGPT) 30 U/L (14-59) Alkaline Phosphatase 85 U/L (46-116) Total Protein 7.8 g/dL (6.4-8.2) Albumin 4.2 g/dL (3.4-5.0) Albumin/Globulin Ratio 1.2 (1.0-1.7) Lipase 97 U/L (73-393) SARS-CoV-2 Antigen (Rapid) Negative (NEGATIVE) Images Images Exam: Ultrasound abdomen limited Indication: Right upper quadrant abdominal pain and epigastric pain Technique: Real-time grayscale and color Doppler images of the right upper quadrant were obtained by the department fishing vessel captain. Comparisons: None FINDINGS: Liver contour is normal. Hepatopedal flow noted within the portal vein. Gallbladder is distended with mild gallbladder wall thickening. Gallstones are noted. Sonographic Benitez sign is positive per the department fishing vessel captain. Common bile duct measures 6 mm in diameter. Right kidney measures 10.4 cm in length. No hydronephrosis. Visual is portions aorta and IVC are unremarkable. IMPRESSION: 1. Findings suspicious for acute cholecystitis. HIDA scan can more definitively evaluate. 2. No right-sided hydronephrosis. 3. Normal sonographic appearance of the liver. VTE Prophylaxis Ordered VTE Prophylaxis Devices: No VTE Pharmacological Prophylaxi: Yes Assessment/Plan Assessment/Plan Acute cholecystitis Plan: Consult general surgery, n.p.o. status Zosyn Fentanyl IV as needed Zofran PRN VTE prophylaxis Patient is her own surrogate decision-maker, full code Justifications for Admission Other Justification ELIEZER RENTREIA MD Jul 13, 2020 08:14
--- NOTE | 2020-07-13 09:07 | PDOC2 ---
SUZANNE ERICKSON [employer] 07/13/20 0907: CONSULT Date of Consult Date of Consult DATE: 07/13/20 TIME: 09:02 Reason for Consult Reason for Consult: cholecystitis Referring Physician Referring Physician: ER Identification/Chief Complaint Chief Complaint abdominal pain Source Source: Chart review, Patient History of Present Illness Reason for Visit: Acute abdominal pain RUQ with radiation to his back for a couple days. No s imilar symptoms in past. Associated nausea and emesis. No constipation or diarrhea. No aggravating or alleviating factors Past Medical History Past Medical History no pertinent hx Past Surgical History Past Surgical History: No pertinent history Family History Family History: Other (noncontributory to current illness ) Social History No ALCOHOL: none Drugs: None Current Problem List Problem List Problems Medical Problems: (1) Acute cholecystitis Status: Acute Current Medications Current Medications Current Medications Sodium Chloride 1,000 ml @ 1,000 mls/hr 1X ONCE IV Last administered on 07/12/20at 20:28; Start 07/12/20 at 20:00; Stop 07/12/20 at 20:59; Status DC Ondansetron HCl (Zofran) 4 mg 1X ONCE IV Last administered on 07/12/20at 20:28; Start 07/12/20 at 20:30; Stop 07/12/20 at 20:31; Status DC Ondansetron HCl (Zofran) 4 mg PRN Q8HRS PRN IV NAUSEA/VOMITING 1ST CHOICE; Start 07/12/20 at 21:15; Stop 07/12/20 at 21:23; Status DC Fentanyl Citrate (Fentanyl 2ml Vial) 50 mcg PRN Q1HR PRN IV SEVERE PAIN 7-10 Last administered on 07/13/20at 07:13; Start 07/12/20 at 21:15 Ondansetron HCl (Zofran) 4 mg PRN Q4HRS PRN IV NAUSEA/VOMITING 1ST CHOICE Last administered on 07/13/20at 07:13; Start 07/12/20 at 21:30 Piperacillin Sod/ Tazobactam Sod 3.375 gm/Sodium Chloride 50 ml @ 100 mls/hr Q6HRS IV Last administered on 07/13/20at 05:38; Start 07/12/20 at 22:00 Fentanyl Citrate (Fentanyl 2ml Vial) 50 mcg 1X ONCE IV Last administered on 07/13/20at 00:26; Start 07/12/20 at 23:30; Stop 07/12/20 at 23:31; Status DC Heparin Sodium (Porcine) 1000 unit/Sodium Chloride 1,001 ml @ 1,001 mls/hr 1X ONCE IRR ; Start 07/13/20 at 08:00; Stop 07/13/20 at 08:59; Status DC Active Scripts Active Tramadol Hcl 50 Mg Tablet 50 Mg PO Q6HRS PRN Orphenadrine Citrate 100 Mg Tablet.er 100 Mg PO BID PRN Allergies Allergies: Coded Allergies: No Known Drug Allergies (Unverified , 12/17/18) ROS General: No: Chills, Other (fevers ) PSYCHOLOGICAL ROS: No: Anxiety, Depression Eyes: No Blurry vision, No Double vision HEENT: No: Heacaches, Sore Throat Hematological and Lymphatic: No: Bleeding Problems, Blood Clots Respiratory: No: Cough, Shortness of breath Cardiovascular: No Chest Pain, No Palpitations Gastrointestinal: Yes Other (see hpi) Genitourinary: No Dysuria, No Hematuria Musculoskeletal: No Joint Pain, No Muscle Pain Neurological: No Impaired Coord/balance, No Numbness/Tingling Skin: No Pruritus, No Rash Physical Exam General: Alert, Oriented X3, Cooperative HEENT: Atraumatic, PERRLA Lungs: Clear to auscultation, Normal air movement Heart: Regular rate, Normal S1, Normal S2 Abdomen: Soft, Other (ND, TTP RUQ) Extremities: No clubbing, No cyanosis Skin: No rashes, No breakdown Neuro: Normal gait, Normal speech Psych/Mental Status: Mental status NL, Mood NL MUSCULOSKELETAL: No deformity, No swelling Vitals VITALS Vital Signs Date Time Temp Pulse Resp B/P (MAP) Pulse Ox O2 Delivery O2 Flow Rate FiO2 07/13/20 07:45 Room Air 07/13/20 07:00 98.2 58 20 115/73 (87) 95 98.2 Labs Labs Laboratory Tests Test 07/12/20 19:53 07/12/20 19:57 07/12/20 20:02 07/13/20 01:50 Urine Collection Type Unknown Urine Color Yellow Urine Clarity Clear Urine pH 7.0 (<5.0-8.0) Urine Specific [place] 1.020 (1.000-1.030) Urine Protein Negative mg/dL (NEG-TRACE) Urine Glucose (UA) Negative mg/dL (NEG) Urine Ketones (Stick) Negative mg/dL (NEG) Urine Blood Trace (NEG) Urine Nitrite Negative (NEG) Urine Bilirubin Negative (NEG) Urine Urobilinogen Dipstick 0.2 mg/dL (0.2 mg/dL) Urine Leukocyte Esterase Trace (NEG) Urine RBC Occ /HPF (0-2) Urine WBC Rare /HPF (0-4) Urine Squamous Epithelial Cells Few /LPF Urine Bacteria Few /HPF (0-FEW) Bedside Urine HCG, Qualitative Hcg negative (Negative) White Blood Count 12.3 x10^3/uL (4.0-11.0) Red Blood Count 4.27 x10^6/uL (3.50-5.40) Hemoglobin 12.2 g/dL (12.0-15.5) Hematocrit 35.2 % (36.0-47.0) Mean Corpuscular Volume 83 fL (79-100) Mean Corpuscular Hemoglobin 29 pg (25-35) Mean Corpuscular Hemoglobin Concent 35 g/dL (31-37) Red Cell Distribution Width 15.0 % (11.5-14.5) Platelet Count 305 x10^3/uL (140-400) Neutrophils (%) (Auto) 62 % (31-73) Lymphocytes (%) (Auto) 28 % (24-48) Monocytes (%) (Auto) 8 % (0-9) Eosinophils (%) (Auto) 1 % (0-3) Basophils (%) (Auto) 1 % (0-3) Neutrophils # (Auto) 7.7 x10^3/uL (1.8-7.7) Lymphocytes # (Auto) 3.4 x10^3/uL (1.0-4.8) Monocytes # (Auto) 1.0 x10^3/uL (0.0-1.1) Eosinophils # (Auto) 0.1 x10^3/uL (0.0-0.7) Basophils # (Auto) 0.1 x10^3/uL (0.0-0.2) Sodium Level 137 mmol/L (136-145) Potassium Level 3.7 mmol/L (3.5-5.1) Chloride Level 103 mmol/L (98-107) Carbon Dioxide Level 25 mmol/L (21-32) Anion Gap 9 (6-14) Blood Urea Nitrogen 12 mg/dL (7-20) Creatinine 0.9 mg/dL (0.6-1.0) Estimated GFR (Cockcroft-Gault) 70.8 BUN/Creatinine Ratio 13 (6-20) Glucose Level 122 mg/dL (70-99) Calcium Level 9.0 mg/dL (8.5-10.1) Magnesium Level 2.3 mg/dL (1.8-2.4) Total Bilirubin 0.2 mg/dL (0.2-1.0) Aspartate Amino Transf (AST/SGOT) 27 U/L (15-37) Alanine Aminotransferase (ALT/SGPT) 30 U/L (14-59) Alkaline Phosphatase 85 U/L (46-116) Total Protein 7.8 g/dL (6.4-8.2) Albumin 4.2 g/dL (3.4-5.0) Albumin/Globulin Ratio 1.2 (1.0-1.7) Lipase 97 U/L (73-393) SARS-CoV-2 Antigen (Rapid) Negative (NEGATIVE) Laboratory Tests Test 07/12/20 19:53 07/12/20 19:57 07/12/20 20:02 07/13/20 01:50 Urine Collection Type Unknown Urine Color Yellow Urine Clarity Clear Urine pH 7.0 (<5.0-8.0) Urine Specific [place] 1.020 (1.000-1.030) Urine Protein Negative mg/dL (NEG-TRACE) Urine Glucose (UA) Negative mg/dL (NEG) Urine Ketones (Stick) Negative mg/dL (NEG) Urine Blood Trace (NEG) Urine Nitrite Negative (NEG) Urine Bilirubin Negative (NEG) Urine Urobilinogen Dipstick 0.2 mg/dL (0.2 mg/dL) Urine Leukocyte Esterase Trace (NEG) Urine RBC Occ /HPF (0-2) Urine WBC Rare /HPF (0-4) Urine Squamous Epithelial Cells Few /LPF Urine Bacteria Few /HPF (0-FEW) Bedside Urine HCG, Qualitative Hcg negative (Negative) White Blood Count 12.3 x10^3/uL (4.0-11.0) Red Blood Count 4.27 x10^6/uL (3.50-5.40) Hemoglobin 12.2 g/dL (12.0-15.5) Hematocrit 35.2 % (36.0-47.0) Mean Corpuscular Volume 83 fL (79-100) Mean Corpuscular Hemoglobin 29 pg (25-35) Mean Corpuscular Hemoglobin Concent 35 g/dL (31-37) Red Cell Distribution Width 15.0 % (11.5-14.5) Platelet Count 305 x10^3/uL (140-400) Neutrophils (%) (Auto) 62 % (31-73) Lymphocytes (%) (Auto) 28 % (24-48) Monocytes (%) (Auto) 8 % (0-9) Eosinophils (%) (Auto) 1 % (0-3) Basophils (%) (Auto) 1 % (0-3) Neutrophils # (Auto) 7.7 x10^3/uL (1.8-7.7) Lymphocytes # (Auto) 3.4 x10^3/uL (1.0-4.8) Monocytes # (Auto) 1.0 x10^3/uL (0.0-1.1) Eosinophils # (Auto) 0.1 x10^3/uL (0.0-0.7) Basophils # (Auto) 0.1 x10^3/uL (0.0-0.2) Sodium Level 137 mmol/L (136-145) Potassium Level 3.7 mmol/L (3.5-5.1) Chloride Level 103 mmol/L (98-107) Carbon Dioxide Level 25 mmol/L (21-32) Anion Gap 9 (6-14) Blood Urea Nitrogen 12 mg/dL (7-20) Creatinine 0.9 mg/dL (0.6-1.0) Estimated GFR (Cockcroft-Gault) 70.8 BUN/Creatinine Ratio 13 (6-20) Glucose Level 122 mg/dL (70-99) Calcium Level 9.0 mg/dL (8.5-10.1) Magnesium Level 2.3 mg/dL (1.8-2.4) Total Bilirubin 0.2 mg/dL (0.2-1.0) Aspartate Amino Transf (AST/SGOT) 27 U/L (15-37) Alanine Aminotransferase (ALT/SGPT) 30 U/L (14-59) Alkaline Phosphatase 85 U/L (46-116) Total Protein 7.8 g/dL (6.4-8.2) Albumin 4.2 g/dL (3.4-5.0) Albumin/Globulin Ratio 1.2 (1.0-1.7) Lipase 97 U/L (73-393) SARS-CoV-2 Antigen (Rapid) Negative (NEGATIVE) Assessment/Plan Assessment/Plan acute cholecystitis surgery today JACQUELINE HODGE MD 07/13/20 1359: CONSULT Assessment/Plan Assessment/Plan Pt seen and examined. Agree with Ms. Erickson's note Pt with c/o persistent RUQ pain TTP RUQ TO OR for laparoscopic versus open cholecystectomy with cholangiogram. R/R/B/A d/w pt whom wishes to proceed. Thanks for consult! SUZANNE ERICKSON APRN Jul 13, 2020 09:07 JACQUELINE HODGE MD Jul 13, 2020 13:59
--- NOTE | 2020-07-13 09:30 | NUR ---
SW following. Discussed with RN, pt from home, room air, NPO, COVID-19 negative. Pt having surgery at noon, pt wanting to discharge after surgery if possible. Med Assist following for self pay status. RN advised no SW needs. SW will continue to follow.
[2020-07-13] MEDS ORDERED: BUPIVACAINE-EPI 0.5%-1:200000 MPF 30 ML VIAL. ONE (13:04)
[2020-07-13] MEDS ORDERED: IOHEXOL 300 MG/ML 50 ML VIAL. ONE (13:05)
[2020-07-13] MEDS ORDERED: BISACODYL 10 MG SUPP.RECT. ONE (13:05)
[2020-07-13] MEDS ORDERED: SURGICEL HEMOSTAT 4X8 EACH. ONE (13:07)
[2020-07-13] MEDS ORDERED: DEXAMETHASONE SOD PHOS 4 MG/ML VIAL ONE (13:09)
[2020-07-13] MEDS ORDERED: LIDOCAINE 2% PF 5 ML VIAL. ONE (13:09)
[2020-07-13] MEDS ORDERED: ONDANSETRON PF 4 MG/2 ML VIAL. ONE (13:09)
[2020-07-13] MEDS ORDERED: ROCURONIUM 50 MG/5 ML VIAL. ONE (13:09)
[2020-07-13] MEDS ORDERED: SUCCINYLCHOLINE 200 MG/10 ML VIAL. ONE (13:09)
[2020-07-13] MEDS ORDERED: PROPOFOL 10 MG/ML (20ML) VIAL. IV ONE (13:09)
[2020-07-13] MEDS ORDERED: fentaNYL PF VIAL 100 MCG/2 ML VIAL ONE ×3 (13:10→16:23)
[2020-07-13] MEDS ORDERED: FAMOTIDINE 20 MG/2 ML VIAL ONE (13:10)
[2020-07-13] MEDS ORDERED: MIDAZOLAM HCL/PF 2 MG/2 ML VIAL. ONE (13:10)
[2020-07-13] MEDS: HEPARIN 1,000 UNIT in IV NORMAL SALINE 1,000 ML for SURG PERIOP IRR ONE ×2 (14:19→14:30)
[2020-07-13] MEDS ORDERED: KETOROLAC 30 MG/ML VIAL. ONE (14:29)
[2020-07-13] MEDS ORDERED: GLYCOPYRROLATE 1 MG/5 ML VIAL. ONE (14:29)
[2020-07-13] MEDS ORDERED: NEOSTIGMINE METHYLSULFATE 5 MG/5 ML SYRINGE. ONE (14:29)
[2020-07-13] MEDS ORDERED: SEVOFLURANE 61 TO 120 MINUTES. IH ONE (14:29)
--- NOTE | 2020-07-13 15:08 | RAD ---
Exam: Intraoperative cholangiogram INDICATION: Cholecystectomy TECHNIQUE: Fluoroscopic images obtained during surgical procedure submitted for interpretation. Comparisons: Ultrasound 07/13/2020 FINDINGS: 2 images were submitted for interpretation. Postsurgical changes cholecystectomy. There is cannulization of the cystic duct. There is filling of the common bile duct and intrahepatic ducts which do not appear dilated. No intraductal filling defects are identified. Second image demonstrates some spilled contrast in the right upper quadrant abdomen. Fluoroscopy time: 0.1 minutes IMPRESSION: Fluoroscopic images as described above. Some extraluminal contrast is noted on second image which may relate to spill from incomplete seal at injection site. Correlate with surgical history. Electronically signed by: Antonina Mcgraw MD (07/13/2020 3:05 PM) [id number]
[2020-07-13] MEDS ORDERED: IV RINGERS,LACTATED 1000ML 1,000 ML IV SCH (15:29)
[2020-07-13] MEDS ORDERED: MORPHINE SULFATE 2 MG/ML VIAL. IV PRN (15:30)
[2020-07-13] MEDS ORDERED: ONDANSETRON PF 4 MG/2 ML VIAL. IV PRN (15:30)
[2020-07-13] MEDS ORDERED: LIDOCAINE 1% PF 2 ML VIAL. ID PRN (15:30)
[2020-07-13] MEDS ORDERED: HYDROmorphone 2 MG/ML VIAL IV PRN (15:30)
[2020-07-13] MEDS ORDERED: fentaNYL PF VIAL 100 MCG/2 ML VIAL IV PRN ×2 (15:30)
[2020-07-13] MEDS ORDERED: PROCHLORPERAZINE 10 MG/2 ML VIAL. IV PRN (15:30)
[2020-07-13] MEDS ORDERED: DEXTROSE 50% 25 GM / 50ML DISP.SYRIN. IV PRN (17:30)
[2020-07-13] MEDS: IV RINGERS,LACTATED 1000ML 1,000 ML IV SCH (17:30)
[2020-07-13] MEDS: IV NORMAL SALINE 1000ML BAG 1,000 ML IV SCH (17:30)
[2020-07-13] MEDS ORDERED: NALOXONE 0.4 MG/ML VIAL. IV PRN (17:30)
[2020-07-13] MEDS ORDERED: ONDANSETRON PF 4 MG/2 ML VIAL. IVP PRN (17:30)
[2020-07-13] MEDS ORDERED: 0.9 % SODIUM CHLORIDE 10 ML DISP.SYRIN. IV PRN (17:30)
--- NOTE | 2020-07-13 17:38 | PDOC4 ---
OPERATIVE NOTE Date: Date: Jul 13, 2020 Pre-Op Diagnosis: Acute calculous cholecystitis Post-Op Diagnosis: same Procedure Performed: laparoscopic cholecystectomy with cholangiogram Surgeon: Memo Hodge Anesthesia Type: GETA plus local Blood Loss: 50 Specimans Obtained: gallbladder Findings: severe cholecystitis with white bile c/w cystic duct obstruction, normal cholangiogram, no other pathology noted. Complications: none Operative Note: After obtaining informed consent, patient was taken to OR, induced under GETA and prepped in the usual fashion. 5 mm ports placed umbilical and RUQ, 12 port placed epigastric, all under laparoscopic guidance. Abdominal cavity was explored and otherwise normal. Gallbladder was noted to be severely inflamed. It was distended and aspirated with white bile, c/w cystic duct obstruction. Gallbladder taken down in dome down fashion. Cystic arteries, anterior and posterior divided with clips. Cholangiogram obtained via cystic duct and was normal. Cystic duct ligated with clips and hemolok. Gallbladder placed in bag, delivered and sent to pathology for evaluation. Copious irrigation. No evidence of bleeding or other pathology at time of closure. Ports removed without bleeding. Fascia repaired with 0 vicryl. Skin repaired with 4 0 monocryl. Dressing placed. Patient tolerated procedure well and sent to PACU in stable condition. All counts correct. Wound class is 3. JACQUELINE HODGE MD Jul 13, 2020 17:38
[2020-07-13] MEDS: HYDROcodone/APAP 5/325MG 1 TAB TABLET PO PRN (19:41)
[2020-07-13] MEDS: DOCUSATE SODIUM 100 MG CAPSULE. PO SCH (20:34)
[2020-07-14] MEDS: fentaNYL PF VIAL 100 MCG/2 ML VIAL IV PRN (00:03)
[2020-07-14 03:00] VITALS: BP 119/58
[2020-07-14] MEDS: IV RINGERS,LACTATED 1000ML 1,000 ML IV SCH ×3 (03:30→23:30)
[2020-07-14] MEDS: HYDROcodone/APAP 5/325MG 1 TAB TABLET PO PRN ×4 (05:25→20:48)
[2020-07-14] MEDS: PIPERACILLIN/TAZOBACTAM 3.375 GM in IV NORMAL SALINE 50ML 50 ML IV SCH ×3 (05:26→16:32)
[2020-07-14 07:00] VITALS: BP 109/57
[2020-07-14 07:20] LABS: BASO % 0 % (0-3); EOS % 0 % (0-3); HEMATOCRIT 31.8 % (36.0-47.0); HEMOGLOBIN 10.8 g/dL (12.0-15.5); LYMPH # 2.6 x10^3/uL (1.0-4.8); LYMPH % 24 % (24-48); MEAN CORPUSCULAR HEMOGLOBIN 28 pg (25-35); MEAN CORPUSCULAR HGB CONC 34 g/dL (31-37); MEAN CORPUSCULAR VOLUME 83 fL (79-100); MONO # 1.2 x10^3/uL (0.0-1.1); MONO % 11 % (0-9); NEUT # 7.2 x10^3/uL (1.8-7.7); NEUT % 66 % (31-73); PLATELET COUNT 207 x10^3/uL (140-400); RED BLOOD COUNT 3.81 x10^6/uL (3.50-5.40); RED CELL DISTRIBUTION WIDTH 14.9 % (11.5-14.5); WHITE BLOOD COUNT 11.1 x10^3/uL (4.0-11.0)
[2020-07-14 07:25] LABS: CALCIUM 8.2 mg/dL (8.5-10.1); CREATININE 0.6 mg/dL (0.6-1.0); GFR 113.1; POTASSIUM 3.3 mmol/L (3.5-5.1)
[2020-07-14] MEDS: DOCUSATE SODIUM 100 MG CAPSULE. PO SCH ×2 (08:49→20:47)
--- NOTE | 2020-07-14 09:20 | NUR ---
SW following. Discussed with RN, surgery 07/13, pt doing well today, room air, full liquid diet - wants to discharge. Anticipate pt will discharge home today. SW will continue to follow.
[2020-07-14] MEDS ORDERED: POTASSIUM CHLORIDE 20 MEQ TABLET.ER. PO ONE (09:30)
--- NOTE | 2020-07-14 10:33 | PDOC ---
SURGICAL PROGRESS NOTE DATE: 07/14/20 TIME: 10:32 Subjective still with moderate amount of pain RUQ no emesis Vital Signs Vital Signs Date Time Temp Pulse Resp B/P (MAP) Pulse Ox O2 Delivery O2 Flow Rate FiO2 07/14/20 07:24 Room Air 07/14/20 07:00 98.2 53 16 109/57 (74) 96 98.2 07/13/20 16:08 10 I&O Intake and Output 07/14/20 07:00 Intake Total 1350 ml Output Total 365 ml Balance 985 ml Intake IV Total 1350 ml Output Urine Total 345 ml Estimated Blood Loss 20 ml # Voids 3 # Bowel Movements 1 General: Alert, Oriented X3 Abdomen: Soft, Other (TTP lap sites ) Labs Laboratory Tests Test 07/12/20 19:53 07/12/20 19:57 07/12/20 20:02 07/12/20 22:31 Urine Collection Type Unknown Urine Color Yellow Urine Clarity Clear Urine pH 7.0 (<5.0-8.0) Urine Specific [place] 1.020 (1.000-1.030) Urine Protein Negative mg/dL (NEG-TRACE) Urine Glucose (UA) Negative mg/dL (NEG) Urine Ketones (Stick) Negative mg/dL (NEG) Urine Blood Trace (NEG) Urine Nitrite Negative (NEG) Urine Bilirubin Negative (NEG) Urine Urobilinogen Dipstick 0.2 mg/dL (0.2 mg/dL) Urine Leukocyte Esterase Trace (NEG) Urine RBC Occ /HPF (0-2) Urine WBC Rare /HPF (0-4) Urine Squamous Epithelial Cells Few /LPF Urine Bacteria Few /HPF (0-FEW) Bedside Urine HCG, Qualitative Hcg negative (Negative) White Blood Count 12.3 x10^3/uL (4.0-11.0) Red Blood Count 4.27 x10^6/uL (3.50-5.40) Hemoglobin 12.2 g/dL (12.0-15.5) Hematocrit 35.2 % (36.0-47.0) Mean Corpuscular Volume 83 fL (79-100) Mean Corpuscular Hemoglobin 29 pg (25-35) Mean Corpuscular Hemoglobin Concent 35 g/dL (31-37) Red Cell Distribution Width 15.0 % (11.5-14.5) Platelet Count 305 x10^3/uL (140-400) Neutrophils (%) (Auto) 62 % (31-73) Lymphocytes (%) (Auto) 28 % (24-48) Monocytes (%) (Auto) 8 % (0-9) Eosinophils (%) (Auto) 1 % (0-3) Basophils (%) (Auto) 1 % (0-3) Neutrophils # (Auto) 7.7 x10^3/uL (1.8-7.7) Lymphocytes # (Auto) 3.4 x10^3/uL (1.0-4.8) Monocytes # (Auto) 1.0 x10^3/uL (0.0-1.1) Eosinophils # (Auto) 0.1 x10^3/uL (0.0-0.7) Basophils # (Auto) 0.1 x10^3/uL (0.0-0.2) Sodium Level 137 mmol/L (136-145) Potassium Level 3.7 mmol/L (3.5-5.1) Chloride Level 103 mmol/L (98-107) Carbon Dioxide Level 25 mmol/L (21-32) Anion Gap 9 (6-14) Blood Urea Nitrogen 12 mg/dL (7-20) Creatinine 0.9 mg/dL (0.6-1.0) Estimated GFR (Cockcroft-Gault) 70.8 BUN/Creatinine Ratio 13 (6-20) Glucose Level 122 mg/dL (70-99) Calcium Level 9.0 mg/dL (8.5-10.1) Magnesium Level 2.3 mg/dL (1.8-2.4) Total Bilirubin 0.2 mg/dL (0.2-1.0) Aspartate Amino Transf (AST/SGOT) 27 U/L (15-37) Alanine Aminotransferase (ALT/SGPT) 30 U/L (14-59) Alkaline Phosphatase 85 U/L (46-116) Total Protein 7.8 g/dL (6.4-8.2) Albumin 4.2 g/dL (3.4-5.0) Albumin/Globulin Ratio 1.2 (1.0-1.7) Lipase 97 U/L (73-393) Coronavirus (PCR) Not detected (Not Detected) Test 07/13/20 01:50 07/14/20 06:27 SARS-CoV-2 Antigen (Rapid) Negative (NEGATIVE) White Blood Count 11.1 x10^3/uL (4.0-11.0) Red Blood Count 3.81 x10^6/uL (3.50-5.40) Hemoglobin 10.8 g/dL (12.0-15.5) Hematocrit 31.8 % (36.0-47.0) Mean Corpuscular Volume 83 fL (79-100) Mean Corpuscular Hemoglobin 28 pg (25-35) Mean Corpuscular Hemoglobin Concent 34 g/dL (31-37) Red Cell Distribution Width 14.9 % (11.5-14.5) Platelet Count 207 x10^3/uL (140-400) Neutrophils (%) (Auto) 66 % (31-73) Lymphocytes (%) (Auto) 24 % (24-48) Monocytes (%) (Auto) 11 % (0-9) Eosinophils (%) (Auto) 0 % (0-3) Basophils (%) (Auto) 0 % (0-3) Neutrophils # (Auto) 7.2 x10^3/uL (1.8-7.7) Lymphocytes # (Auto) 2.6 x10^3/uL (1.0-4.8) Monocytes # (Auto) 1.2 x10^3/uL (0.0-1.1) Eosinophils # (Auto) 0.0 x10^3/uL (0.0-0.7) Basophils # (Auto) 0.0 x10^3/uL (0.0-0.2) Sodium Level 140 mmol/L (136-145) Potassium Level 3.3 mmol/L (3.5-5.1) Chloride Level 105 mmol/L (98-107) Carbon Dioxide Level 26 mmol/L (21-32) Anion Gap 9 (6-14) Blood Urea Nitrogen 6 mg/dL (7-20) Creatinine 0.6 mg/dL (0.6-1.0) Estimated GFR (Cockcroft-Gault) 113.1 Glucose Level 103 mg/dL (70-99) Calcium Level 8.2 mg/dL (8.5-10.1) Laboratory Tests Test 07/14/20 06:27 White Blood Count 11.1 x10^3/uL (4.0-11.0) Red Blood Count 3.81 x10^6/uL (3.50-5.40) Hemoglobin 10.8 g/dL (12.0-15.5) Hematocrit 31.8 % (36.0-47.0) Mean Corpuscular Volume 83 fL (79-100) Mean Corpuscular Hemoglobin 28 pg (25-35) Mean Corpuscular Hemoglobin Concent 34 g/dL (31-37) Red Cell Distribution Width 14.9 % (11.5-14.5) Platelet Count 207 x10^3/uL (140-400) Neutrophils (%) (Auto) 66 % (31-73) Lymphocytes (%) (Auto) 24 % (24-48) Monocytes (%) (Auto) 11 % (0-9) Eosinophils (%) (Auto) 0 % (0-3) Basophils (%) (Auto) 0 % (0-3) Neutrophils # (Auto) 7.2 x10^3/uL (1.8-7.7) Lymphocytes # (Auto) 2.6 x10^3/uL (1.0-4.8) Monocytes # (Auto) 1.2 x10^3/uL (0.0-1.1) Eosinophils # (Auto) 0.0 x10^3/uL (0.0-0.7) Basophils # (Auto) 0.0 x10^3/uL (0.0-0.2) Sodium Level 140 mmol/L (136-145) Potassium Level 3.3 mmol/L (3.5-5.1) Chloride Level 105 mmol/L (98-107) Carbon Dioxide Level 26 mmol/L (21-32) Anion Gap 9 (6-14) Blood Urea Nitrogen 6 mg/dL (7-20) Creatinine 0.6 mg/dL (0.6-1.0) Estimated GFR (Cockcroft-Gault) 113.1 Glucose Level 103 mg/dL (70-99) Calcium Level 8.2 mg/dL (8.5-10.1) Problem List Problems Medical Problems: (1) Acute cholecystitis Status: Acute Assessment/Plan s/p lakeisha continue abx, pain management Justicifation of Admission Dx: Justifications for Admission: Justification of Admission Dx: Yes SUZANNE ERICKSON [employer] P[employer]ERER Jul 14, 2020 10:33
[2020-07-14 11:00] VITALS: BP 111/60
[2020-07-14] MEDS: IV NORMAL SALINE 1000ML BAG 1,000 ML IV SCH (11:03)
--- NOTE | 2020-07-14 11:06 | PDOC ---
[employer] PROGRESS NOTE Date of Service DOS: DATE: 07/14/20 TIME: 11:04 Chief Complaint Chief Complaint Abdominal pain History of Present Illness History of Present Illness Patient evaluated status post lap cholecystectomy. She is having abdominal pain, slightly alleviated with medication. She denies any nausea vomiting. Discussed with patient and RN, will keep inpatient for IV antibiotics and pain control. Vitals/I&O Vitals/I&O: Vital Signs Date Time Temp Pulse Resp B/P (MAP) Pulse Ox O2 Delivery O2 Flow Rate FiO2 07/14/20 10:35 96 Room Air 07/14/20 07:00 98.2 53 16 109/57 (74) 98.2 07/13/20 16:08 10 I & O 07/13/20 07/13/20 07/14/20 15:00 23:00 07:00 Intake Total 50 ml 1300 ml Output Total 365 ml Balance 50 ml 935 ml Physical Exam General: Alert, Oriented X3 Heart: Regular rate, Normal S1, Normal S2 Abdomen: Soft, Other (TTP lap sites ) Extremities: No clubbing, No cyanosis Skin: No rashes, No breakdown Labs Labs: Laboratory Tests Test 07/14/20 06:27 White Blood Count 11.1 x10^3/uL (4.0-11.0) Red Blood Count 3.81 x10^6/uL (3.50-5.40) Hemoglobin 10.8 g/dL (12.0-15.5) Hematocrit 31.8 % (36.0-47.0) Mean Corpuscular Volume 83 fL (79-100) Mean Corpuscular Hemoglobin 28 pg (25-35) Mean Corpuscular Hemoglobin Concent 34 g/dL (31-37) Red Cell Distribution Width 14.9 % (11.5-14.5) Platelet Count 207 x10^3/uL (140-400) Neutrophils (%) (Auto) 66 % (31-73) Lymphocytes (%) (Auto) 24 % (24-48) Monocytes (%) (Auto) 11 % (0-9) Eosinophils (%) (Auto) 0 % (0-3) Basophils (%) (Auto) 0 % (0-3) Neutrophils # (Auto) 7.2 x10^3/uL (1.8-7.7) Lymphocytes # (Auto) 2.6 x10^3/uL (1.0-4.8) Monocytes # (Auto) 1.2 x10^3/uL (0.0-1.1) Eosinophils # (Auto) 0.0 x10^3/uL (0.0-0.7) Basophils # (Auto) 0.0 x10^3/uL (0.0-0.2) Sodium Level 140 mmol/L (136-145) Potassium Level 3.3 mmol/L (3.5-5.1) Chloride Level 105 mmol/L (98-107) Carbon Dioxide Level 26 mmol/L (21-32) Anion Gap 9 (6-14) Blood Urea Nitrogen 6 mg/dL (7-20) Creatinine 0.6 mg/dL (0.6-1.0) Estimated GFR (Cockcroft-Gault) 113.1 Glucose Level 103 mg/dL (70-99) Calcium Level 8.2 mg/dL (8.5-10.1) Review of Systems Review of Systems: Abdominal pain. Denies nausea, denies vomiting, denies fever. Assessment and Plan Assessmemt and Plan Problems Medical Problems: (1) Acute cholecystitis Status: Acute Comment Review of Relevant I have reviewed the following items fernandez (where applicable) has been applied. Medications: Current Medications Medications (Trade) Dose Ordered Sig/Dionna Route PRN Reason Start Time Stop Time Status Last Admin Dose Admin Bupivacaine HCl/ Epinephrine Bitart (Sensorcain-Epi 0.5%-1:795653 Mpf) 30 ml STK-MED ONCE .ROUTE 07/13/20 13:04 07/13/20 13:05 DC 07/13/20 14:29 Iohexol (Omnipaque 300 Mg/ml) 50 ml STK-MED ONCE .ROUTE 07/13/20 13:05 07/13/20 13:05 DC 07/13/20 14:29 Bisacodyl (Dulcolax Supp) 10 mg STK-MED ONCE .ROUTE 07/13/20 13:05 07/13/20 13:05 DC 07/13/20 15:15 Fentanyl Citrate (Fentanyl 2ml Vial) 50 mcg PRN Q5MIN PRN IV MODERATE TO SEVERE PAIN 07/13/20 15:30 07/14/20 15:29 07/13/20 16:25 Ringer's Solution 1,000 ml @ 30 mls/hr Q24H IV 07/13/20 15:29 07/14/20 03:28 DC 07/13/20 15:53 Acetaminophen/ Hydrocodone Bitart (Lortab 5/325) 1 tab PRN Q4HRS PRN PO MILD PAIN 1-3 07/13/20 17:30 07/14/20 10:35 Docusate Sodium (Colace) 100 mg BID PO 07/13/20 21:00 07/13/20 20:34 Potassium Chloride (Klor-Con) 20 meq 1X ONCE PO 07/14/20 09:30 07/14/20 09:31 DC 07/14/20 09:42 Justifications for Admission Other Justification ELIEZER RENTERIA MD Jul 14, 2020 11:06
[2020-07-14 15:00] VITALS: BP 108/62
[2020-07-14 19:00] VITALS: BP 112/59
[2020-07-14] MEDS: LACTOBACILLUS RHAMNOSUS GG 1 CAPSULE. PO SCH (20:47)
[2020-07-14 23:00] VITALS: BP 111/44
[2020-07-15] MEDS: PIPERACILLIN/TAZOBACTAM 3.375 GM in IV NORMAL SALINE 50ML 50 ML IV SCH ×3 (00:40→12:16)
[2020-07-15] MEDS: HYDROcodone/APAP 5/325MG 1 TAB TABLET PO PRN ×4 (00:41→13:57)
[2020-07-15 03:00] VITALS: BP 98/54
[2020-07-15 05:13] LABS: CALCIUM 7.6 mg/dL (8.5-10.1); CREATININE 0.7 mg/dL (0.6-1.0); GFR 94.7; POTASSIUM 3.6 mmol/L (3.5-5.1)
[2020-07-15 07:00] VITALS: BP 99/47
[2020-07-15] MEDS: IV RINGERS,LACTATED 1000ML 1,000 ML IV SCH (07:45)
[2020-07-15] MEDS: IV NORMAL SALINE 1000ML BAG 1,000 ML IV SCH (07:46)
--- NOTE | 2020-07-15 08:57 | PDOC ---
SURGICAL PROGRESS NOTE DATE: 07/15/20 TIME: 08:56 Subjective improving sore at incision sites no n/v Vital Signs Vital Signs Date Time Temp Pulse Resp B/P (MAP) Pulse Ox O2 Delivery O2 Flow Rate FiO2 07/15/20 07:00 98.0 61 20 99/47 (64) 98 Room Air 98.0 I&O Intake and Output 07/15/20 07:00 Intake Total 300 ml Balance 300 ml Intake Oral 300 ml # Voids 6 General: Alert, Oriented X3, Cooperative Abdomen: Soft, Other (lap sites c/d/i, no erythema ) Labs Laboratory Tests Test 07/14/20 06:27 07/15/20 03:50 White Blood Count 11.1 x10^3/uL (4.0-11.0) Red Blood Count 3.81 x10^6/uL (3.50-5.40) Hemoglobin 10.8 g/dL (12.0-15.5) Hematocrit 31.8 % (36.0-47.0) Mean Corpuscular Volume 83 fL (79-100) Mean Corpuscular Hemoglobin 28 pg (25-35) Mean Corpuscular Hemoglobin Concent 34 g/dL (31-37) Red Cell Distribution Width 14.9 % (11.5-14.5) Platelet Count 207 x10^3/uL (140-400) Neutrophils (%) (Auto) 66 % (31-73) Lymphocytes (%) (Auto) 24 % (24-48) Monocytes (%) (Auto) 11 % (0-9) Eosinophils (%) (Auto) 0 % (0-3) Basophils (%) (Auto) 0 % (0-3) Neutrophils # (Auto) 7.2 x10^3/uL (1.8-7.7) Lymphocytes # (Auto) 2.6 x10^3/uL (1.0-4.8) Monocytes # (Auto) 1.2 x10^3/uL (0.0-1.1) Eosinophils # (Auto) 0.0 x10^3/uL (0.0-0.7) Basophils # (Auto) 0.0 x10^3/uL (0.0-0.2) Sodium Level 140 mmol/L (136-145) 140 mmol/L (136-145) Potassium Level 3.3 mmol/L (3.5-5.1) 3.6 mmol/L (3.5-5.1) Chloride Level 105 mmol/L (98-107) 105 mmol/L (98-107) Carbon Dioxide Level 26 mmol/L (21-32) 28 mmol/L (21-32) Anion Gap 9 (6-14) 7 (6-14) Blood Urea Nitrogen 6 mg/dL (7-20) 6 mg/dL (7-20) Creatinine 0.6 mg/dL (0.6-1.0) 0.7 mg/dL (0.6-1.0) Estimated GFR (Cockcroft-Gault) 113.1 94.7 Glucose Level 103 mg/dL (70-99) 91 mg/dL (70-99) Calcium Level 8.2 mg/dL (8.5-10.1) 7.6 mg/dL (8.5-10.1) Laboratory Tests Test 07/15/20 03:50 Sodium Level 140 mmol/L (136-145) Potassium Level 3.6 mmol/L (3.5-5.1) Chloride Level 105 mmol/L (98-107) Carbon Dioxide Level 28 mmol/L (21-32) Anion Gap 7 (6-14) Blood Urea Nitrogen 6 mg/dL (7-20) Creatinine 0.7 mg/dL (0.6-1.0) Estimated GFR (Cockcroft-Gault) 94.7 Glucose Level 91 mg/dL (70-99) Calcium Level 7.6 mg/dL (8.5-10.1) Problem List Problems Medical Problems: (1) Acute cholecystitis Status: Acute Assessment/Plan s/p lakeisha [place] to [place] home on oral abx FU 2 weeks Justicifation of Admission Dx: Justifications for Admission: Justification of Admission Dx: Yes SUZANNE ERICKSON [employer] FEEDER Jul 15, 2020 08:57
[2020-07-15] MEDS ORDERED: AMOX1TAB61 PO (08:59)
[2020-07-15] MEDS ORDERED: HYDR-2761 PO (08:59)
[2020-07-15] MEDS ORDERED: DOCU-153 PO (08:59)
--- NOTE | 2020-07-15 09:25 | NUR ---
SW following. Discussed with RN, pt from home, room air, regular diet. RN advised no SW needs, anticipate discharge home today with self care. SW will continue to follow.
[2020-07-15] MEDS: DOCUSATE SODIUM 100 MG CAPSULE. PO SCH (09:36)
[2020-07-15] MEDS: LACTOBACILLUS RHAMNOSUS GG 1 CAPSULE. PO SCH (09:36)
[2020-07-15 11:00] VITALS: BP 99/43
--- NOTE | 2020-07-15 11:25 | PDOC ---
[employer] PROGRESS NOTE Date of Service DOS: DATE: 07/15/20 TIME: 11:24 Chief Complaint Chief Complaint Abdominal pain History of Present Illness History of Present Illness Patient evaluated at bedside. She is having some incisional tenderness, but denies nausea, vomiting, or fever. She feels comfortable discharging home today. Vitals/I&O Vitals/I&O: Vital Signs Date Time Temp Pulse Resp B/P (MAP) Pulse Ox O2 Delivery O2 Flow Rate FiO2 07/15/20 11:00 98.0 70 20 99/43 (61) 100 Room Air 98.0 I & O 07/14/20 07/14/20 07/15/20 15:00 23:00 07:00 Intake Total 200 ml 100 ml Balance 200 ml 100 ml Physical Exam General: Alert, Oriented X3, Cooperative Heart: Regular rate, Normal S1, Normal S2 Abdomen: Soft, Other (lap sites c/d/i, no erythema ) Extremities: No clubbing, No cyanosis Skin: No rashes, No breakdown Labs Labs: Laboratory Tests Test 07/15/20 03:50 Sodium Level 140 mmol/L (136-145) Potassium Level 3.6 mmol/L (3.5-5.1) Chloride Level 105 mmol/L (98-107) Carbon Dioxide Level 28 mmol/L (21-32) Anion Gap 7 (6-14) Blood Urea Nitrogen 6 mg/dL (7-20) Creatinine 0.7 mg/dL (0.6-1.0) Estimated GFR (Cockcroft-Gault) 94.7 Glucose Level 91 mg/dL (70-99) Calcium Level 7.6 mg/dL (8.5-10.1) Review of Systems Review of Systems: Abdominal pain. Denies nausea, denies vomiting, denies fever. Assessment and Plan Assessmemt and Plan Problems Medical Problems: (1) Acute cholecystitis Status: Acute Comment Review of Relevant I have reviewed the following items fernandez (where applicable) has been applied. Medications: Current Medications Medications (Trade) Dose Ordered Sig/Dionna Route PRN Reason Start Time Stop Time Status Last Admin Dose Admin Lactobacillus Rhamnosus (Culturelle) 1 cap BID PO 07/14/20 21:00 07/15/20 09:36 Justifications for Admission Other Justification ELIEZER RENTERIA MD Jul 15, 2020 11:25
--- NOTE | 2020-07-15 11:28 | PDOC3 ---
Discharge Summary Visit Information Date of Admission: Jul 12, 2020 Date of Discharge: Jul 15, 2020 Final Diagnosis Problems Medical Problems: (1) Acute cholecystitis Status: Acute Brief Hospital Course Allergies Allergies Coded Allergies Type Severity Reaction Last Updated Verified No Known Drug Allergies 12/17/18 No Vital Signs Vital Signs Date Time Temp Pulse Resp B/P (MAP) Pulse Ox O2 Delivery O2 Flow Rate FiO2 07/15/20 11:00 98.0 70 20 99/43 (61) 100 Room Air 98.0 Lab Results Laboratory Tests Test 07/14/20 06:27 07/15/20 03:50 White Blood Count 11.1 x10^3/uL (4.0-11.0) Red Blood Count 3.81 x10^6/uL (3.50-5.40) Hemoglobin 10.8 g/dL (12.0-15.5) Hematocrit 31.8 % (36.0-47.0) Mean Corpuscular Volume 83 fL (79-100) Mean Corpuscular Hemoglobin 28 pg (25-35) Mean Corpuscular Hemoglobin Concent 34 g/dL (31-37) Red Cell Distribution Width 14.9 % (11.5-14.5) Platelet Count 207 x10^3/uL (140-400) Neutrophils (%) (Auto) 66 % (31-73) Lymphocytes (%) (Auto) 24 % (24-48) Monocytes (%) (Auto) 11 % (0-9) Eosinophils (%) (Auto) 0 % (0-3) Basophils (%) (Auto) 0 % (0-3) Neutrophils # (Auto) 7.2 x10^3/uL (1.8-7.7) Lymphocytes # (Auto) 2.6 x10^3/uL (1.0-4.8) Monocytes # (Auto) 1.2 x10^3/uL (0.0-1.1) Eosinophils # (Auto) 0.0 x10^3/uL (0.0-0.7) Basophils # (Auto) 0.0 x10^3/uL (0.0-0.2) Sodium Level 140 mmol/L (136-145) 140 mmol/L (136-145) Potassium Level 3.3 mmol/L (3.5-5.1) 3.6 mmol/L (3.5-5.1) Chloride Level 105 mmol/L (98-107) 105 mmol/L (98-107) Carbon Dioxide Level 26 mmol/L (21-32) 28 mmol/L (21-32) Anion Gap 9 (6-14) 7 (6-14) Blood Urea Nitrogen 6 mg/dL (7-20) 6 mg/dL (7-20) Creatinine 0.6 mg/dL (0.6-1.0) 0.7 mg/dL (0.6-1.0) Estimated GFR (Cockcroft-Gault) 113.1 94.7 Glucose Level 103 mg/dL (70-99) 91 mg/dL (70-99) Calcium Level 8.2 mg/dL (8.5-10.1) 7.6 mg/dL (8.5-10.1) Laboratory Tests Test 07/15/20 03:50 Sodium Level 140 mmol/L (136-145) Potassium Level 3.6 mmol/L (3.5-5.1) Chloride Level 105 mmol/L (98-107) Carbon Dioxide Level 28 mmol/L (21-32) Anion Gap 7 (6-14) Blood Urea Nitrogen 6 mg/dL (7-20) Creatinine 0.7 mg/dL (0.6-1.0) Estimated GFR (Cockcroft-Gault) 94.7 Glucose Level 91 mg/dL (70-99) Calcium Level 7.6 mg/dL (8.5-10.1) Brief Hospital Course Ms. Hebert is a 35 old female who presented with acute cholecystitis. She had a laparoscopic cholecystectomy. She was treated with appropriate pain management and IV fluids. She was stable for discharge home. Recommended to patient she establish primary care. Discharge Information Condition at Discharge: Stable Disposition/Orders: D/C to Home Scheduled PRN Hydrocodone Bit/Acetaminophen (Hydrocodone-Apap 5-325 ) 1 Tab Tablet, 1 TAB P O PRN Q4HRS PRN for MILD PAIN 1-3, #30 Ref 0 Prescribed by: Valery Cameron on 07/15/20 8730 Orphenadrine Citrate (Orphenadrine Citrate) 100 Mg Tablet.er, 100 MG PO BID PRN for MUSCLE PAIN, #14 Prescribed by: MYA MAYA DWillis on 2/04/29 2146 Last Action: HELD on 07/13/20743 by ELIEZER RENTERIA MD Tramadol Hcl (Tramadol Hcl) 50 Mg Tablet, 50 MG PO Q6HRS PRN for PAIN, #14 Prescribed by: MYA MAYA D.O. on 12/17/182145 Last Action: HELD on 07/13/20743 by ELIEZER RENTERIA MD Justicifation of Admission Dx: Justifications for Admission: Justification of Admission Dx: Yes ELIEZER RENTERIA MD Jul 15, 2020 11:28
--- NOTE | 2020-07-20 12:07 | PATHOLOGY ---
[facility] Accession Number: [id number] . 01 Material submitted: . gallbladder - GALLBLADDER AND CONTENTS . 01 Clinical history: . ACUTE CHOLECYSTITIS . 02 Diagnosis: Gallbladder, excision: - Acute cholecystitis, arising in a background of chronic cholecystitis; negative for malignancy. - Lithiasis. (MLK:[facility]; 07/19/2020) QTP 07/20/2020 1145 Local . 02 Electronically signed: . Zandra Bills MD, Pathologist NPI- [id number] . 01 Gross description: . Received in formalin labeled "Cortjessicareyes, Geeta, gallbladder and contents" is an intact cholecystectomy specimen measuring 11.5 x 4.1 x 3.1 cm. The serosa is pink-red, hemorrhagic, and ragged and the specimen is opened to reveal red-brown, trabeculated, hemorrhagic mucosa without polyps or masses. The average wall thickness is 0.5 cm. Multiple yellow green multifaceted calculi are present, measuring in aggregate 6.0 x 3.7 x 1.0 cm and ranging from 0.6-1.0 cm in greatest dimension. One of the calculi is present within the cystic neck, obstructing the cystic duct. [employer]er Service Attendant sections of the fundus and body and the cystic duct margin are submitted in A1. ([facility]; 07/14/2020) [facility] 07/14/2020 1711 Local . 02 Pathologist provided ICD-10: K80.12 . 02 CPT . 629697 Specimen Comment: A courtesy copy of this report has been sent to [phone] Specimen Comment: [id number] Specimen Comment: Report sent to / Performed at: [address] [place] [address] [address], [place], [place] [id number] MD Gregorio Steel MD Phone: [phone] Performed at: [address] [id number] MD Brent Coffman MD Phone: [phone]
== END 2020-07-15 14:10 | disposition home or self-care (01) | DRG 419 ==
LOC: ER 18:18 → ED HOLD 21:10 → ER 21:32 → 4 NORTH 07-13 00:12
PROVIDERS: ADMIT Internal Medicine; ATTEND Internal Medicine
PROC: 0FT44ZZ Resection of Gallbladder, Percutaneous Endoscopic Approach (ICD-10-PCS; principal; 2020-07-12)
PROC: BF141ZZ Fluoroscopy of Gallbladder, Bile Ducts and Pancreatic Ducts using Low Osmolar Contrast (ICD-10-PCS; 2020-07-12)
DX: K80.01 Calculus of gallbladder with acute cholecystitis with obstruction (principal); Z20.828 Contact with and (suspected) exposure to other viral communicable diseases
CPT/HCPCS: 36415; 74300; 76705; 80048; 80053; 81001; 81025; 83690; 83735; 85025; 87040; 87086; 87426; 88304; 96361; 96374; A7015; J0330; J1100; J1885; J2250; J2405; J2543; J2704; J2710; J3010; J3490; J7030; J7120; Q9967; 99285-25; G0378; U0003-CS